=== PATIENT | female | born 1965 | race African-American/Black ===

== ENCOUNTER 2018-02-14 10:43 | Emergency (ER) | payer MEDICARE ==
[~2018-02-14] VITALS: Ht 170.2 cm; Wt 85.0 kg
[2018-02-14 10:47] VITALS: BP 124/76; PULSE 65; RESP 16; O2SAT 100
[2018-02-14] MEDS ORDERED: DIAZ5TAB PO (11:05)
[2018-02-14] MEDS ORDERED: TOPI1CAP PO (11:05)
[2018-02-14] MEDS ORDERED: MELO7.5T27 PO (11:05)
[2018-02-14] MEDS ORDERED: PARO20TA2 PO (11:05)
[2018-02-14] MEDS ORDERED: CLON0.2T PO (11:05)
[2018-02-14] MEDS ORDERED: ROSU1TAB8 PO (11:05)
[2018-02-14] MEDS ORDERED: ALBU6.7H INH (11:05)
[2018-02-14] MEDS ORDERED: SERT-132 PO (11:05)
[2018-02-14] MEDS ORDERED: ALEN1TAB48 PO (11:05)
[2018-02-14] MEDS ORDERED: PANT40TA3 PO (11:05)
[2018-02-14] MEDS ORDERED: ZOLP5TAB3 PO (11:05)
[2018-02-14] MEDS ORDERED: HYDR-3133 PO (11:05)
[2018-02-14] MEDS ORDERED: METO1TAB9 PO (11:05)
[2018-02-14] MEDS ORDERED: BACL10TA PO (11:05)
[2018-02-14] MEDS ORDERED: LYRI200C PO (11:05)
[2018-02-14] MEDS ORDERED: AMLO5TAB2 PO (11:05)
[2018-02-14] MEDS ORDERED: UMEC1INH INH (11:05)
[2018-02-14] MEDS ORDERED: DICL1KIT5 TOPICAL (11:05)
[2018-02-14] MEDS ORDERED: NALO1TAB2 PO (11:05)
[2018-02-14] MEDS ORDERED: LISI40TA PO (11:05)
[2018-02-14 11:10] LABS: AUTOMATED NEUTROPHIL # 5.5 TH/MM3 (1.8-7.7); BASOPHIL # 0.1 TH/MM3 (0-0.2); BASOPHIL % 0.6 % (0.0-2.0); EOSINOPHIL # 0.2 TH/MM3 (0-0.4); EOSINOPHIL % 2.1 % (0.0-4.0); HEMOGLOBIN 12.6 GM/DL (11.6-15.3); LYMPH % 31.9 % (9.0-44.0); MEAN CELL VOLUME 89.9 FL (80.0-100.0); MEAN CORPUSCULAR HEMOGLOBIN 29.8 PG (27.0-34.0); MEAN CORPUSCULAR HGB CONC 33.1 % (32.0-36.0); MEAN PLATELET VOLUME 7.6 FL (7.0-11.0); MONO % 7.6 % (0.0-8.0); MONOCYTE # 0.7 TH/MM3 (0-0.9); NEUT % 57.8 % (16.0-70.0); PLATELET COUNT 296 TH/MM3 (150-450); RED BLOOD COUNT 4.23 MIL/MM3 (4.00-5.30); RED CELL DISTRIBUTION WIDTH 16.2 % (11.6-17.2); WHITE BLOOD COUNT 9.5 TH/MM3 (4.0-11.0)
--- NOTE | 2018-02-14 11:25 | HHI.FF ---
Face to Face Verification Diagnosis: (1) Gait instability (2) Fibromyalgia (3) Chronic back pain (4) Vision impairment (5) Glaucoma Home Health Nursing Order: Medical education Signs/symptoms of disease process Medication education-adverse effect Nursing assessment with vital signs I have seen patient Echo Baez on 02/14/18. My clinical findings support the need for the requested home health care services because: Ltd mobility - disease progression Limited ability to care for self Need for psychosocial assistance Impaired cognition/judgement I certify that my clinical findings support that this patient is homebound because: Unsteady gait/balance Unsafe to leave home unassisted Need for psychosocial assistance Jon Allen MD February 14, 2018 11:25
[2018-02-14 12:00] VITALS: BP 120/73; PULSE 61; RESP 16; O2SAT 99
[2018-02-14 12:22] LABS: ALBUMIN 3.7 GM/DL (3.4-5.0); AST (GOT) 200 U/L (15-37); BICARBONATE 20.4 MEQ/L (21.0-32.0); BLOOD UREA NITROGEN 19 MG/DL (7-18); CALCIUM 8.6 MG/DL (8.5-10.1); CHLORIDE 113 MEQ/L (98-107); CREATININE 1.03 MG/DL (0.50-1.00); GLOMERULAR FILTRATION RATE 69 ML/MIN (>89); GLUCOSE,RANDOM 85 MG/DL (74-106); SODIUM (NA) 142 MEQ/L (136-145)
[2018-02-14 12:23] LABS: ALT (GPT) 90 U/L (10-53)
[2018-02-14 12:25] LABS: ALKALINE PHOSPHATASE 110 U/L (45-117); TOTAL BILIRUBIN ADULT 0.4 MG/DL (0.2-1.0); TOTAL PROTEIN 7.3 GM/DL (6.4-8.2)
--- NOTE | 2018-02-14 12:42 | PD ---
HPI Chief Complaint: General Weakness Time Seen by Provider: 10:50 Travel History International Travel<30 days: No Contact w/Intl Traveler<30days: No Traveled to known affect area: No History of Present Illness HPI Is a 52-year-old woman who presents to the emergency department via [facility] after a friend called because she appeared to be altered. She had slurred speech and unsteady gait. Per EMS a friend was concerned that the patient may be taking too much medication or should not be administering her medication. Patient states she has been feeling weak more recently, and a little bit more unsteady. Patient is on diazepam twice daily, baclofen, hydroxyzine e daily, Lyrica, and oxycodone. In her medication back there is also zolpidem which she says she is not taking she states she started the baclofen again in addition to the diazepam beginning of January. She states that she does her medications but is worried about them some. Denies any other infectious symptoms. No urinary symptoms. No other complaints. History Past Medical History Narrative Medical Glaucoma, decreased vision Back problems Fibromyalgia Tetanus Vaccination: > 5 Years Influenza Vaccination: No Social History Alcohol Use: No Tobacco Use: No Allergies-Medications (Allergen,Severity, Reaction): Coded Allergies: No Known Allergies (Verified Allergy, Intermediate, 02/14/18) Reported Meds & Prescriptions Reported Meds & Active Scripts Active Reported Alendronate (Alendronate Sodium) 70 Mg Tab 70 Mg PO Q7D Proventil Hfa 6.7 GM Inh (Albuterol Sulfate) 90 Mcg/Act Aer 2 Puff INH Q4-6H PRN Incruse Ellipta Inh (Umeclidinium [place] Inh) 0.0625 Mg/Act Inh 62.5 Mcg INH DAILY Diclo Gel Topical (Diclofenac Sodium) 1% Gel 1 Applic TOPICAL QID Trokendi Xr (Topiramate) 200 Mg Cap 200 Mg PO DAILY Metoprolol Succinate ER 24 HR (Metoprolol Succinate) 50 Mg Tab 50 Mg PO DAILY Paroxetine (Paroxetine HCl) 20 Mg Tab 20 Mg PO DAILY Rosuvastatin (Rosuvastatin Calcium) 20 Mg Tab 20 Mg PO DAILY Meloxicam 7.5 Mg Tab 7.5 Mg PO DAILY Amlodipine (Amlodipine Besylate) 5 Mg Tab 5 Mg PO DAILY Pantoprazole (Pantoprazole Sodium) 40 Mg Tab 40 Mg PO DAILY Zolpidem (Zolpidem Tartrate) 5 Mg Tab 5 Mg PO HS PRN Lisinopril 40 Mg Tab 40 Mg PO DAILY Diazepam 5 Mg Tab 5 Mg PO TID PRN Movantik (Naloxegol) 25 Mg Tab 25 Mg PO DAILY Hydroxyzine HCl 25 Mg Tab 25 Mg PO TID Baclofen 10 Mg Tab 10 Mg PO Q8HR Clonidine (Clonidine HCl) 0.2 Mg Tab 0.2 Mg PO HS Sertraline (Sertraline HCl) 50 Mg Tab 50 Mg PO DAILY Lyrica (Pregabalin) 200 Mg Cap 200 Mg PO BID Review of Systems Except as stated in HPI: all other systems reviewed are Neg Physical Exam Narrative GENERAL: 52-year-old woman, little bit sluggish, but answers all questions appropriately. SKIN: Focused skin assessment warm/dry. HEAD: Atraumatic. Normocephalic. EYES: Pupils equal and round. No scleral icterus. No injection or drainage. Slight ptosis on the right. ENT: No nasal bleeding or discharge. Mucous membranes pink and moist. NECK: Trachea midline. No JVD. CARDIOVASCULAR: Regular rate and rhythm. No murmur appreciated. RESPIRATORY: No accessory muscle use. Clear to auscultation. Breath sounds equal bilaterally. GASTROINTESTINAL: Abdomen soft, non-tender, nondistended. Hepatic and splenic margins not palpable. MUSCULOSKELETAL: No obvious deformities. No clubbing. No cyanosis. No edema. NEUROLOGICAL: Awake and alert. No obvious cranial nerve deficits. Motor grossly within normal limits. Normal speech. PSYCHIATRIC: Appropriate mood and affect; insight and judgment normal. Data Data Last Documented VS Vital Signs Date Time Temp Pulse Resp B/P (MAP) Pulse Ox O2 Delivery O2 Flow Rate FiO2 02/14/18 10:50 64 18 100 Room Air 02/14/18 10:47 124/76 (92) Orders Orders Complete Blood Count With Diff (02/14/18 10:50) Comprehensive Metabolic Panel (02/14/18 10:50) Iv Access Insert/Monitor (02/14/18 10:50) Electrocardiogram (02/14/18 10:49) Labs Laboratory Tests Test 02/14/18 10:59 02/14/18 11:41 White Blood Count 9.5 TH/MM3 Red Blood Count 4.23 MIL/MM3 Hemoglobin 12.6 GM/DL Hematocrit 38.0 % Mean Corpuscular Volume 89.9 FL Mean Corpuscular Hemoglobin 29.8 PG Mean Corpuscular Hemoglobin Concent 33.1 % Red Cell Distribution Width 16.2 % Platelet Count 296 TH/MM3 Mean Platelet Volume 7.6 FL Neutrophils (%) (Auto) 57.8 % Lymphocytes (%) (Auto) 31.9 % Monocytes (%) (Auto) 7.6 % Eosinophils (%) (Auto) 2.1 % Basophils (%) (Auto) 0.6 % Neutrophils # (Auto) 5.5 TH/MM3 Lymphocytes # (Auto) 3.0 TH/MM3 Monocytes # (Auto) 0.7 TH/MM3 Eosinophils # (Auto) 0.2 TH/MM3 Basophils # (Auto) 0.1 TH/MM3 CBC Comment DIFF FINAL Differential Comment Blood Urea Nitrogen 19 MG/DL Creatinine 1.03 MG/DL Random Glucose 85 MG/DL Albumin 3.7 GM/DL Calcium Level 8.6 MG/DL Aspartate Amino Transf (AST/SGOT) 200 U/L Alanine Aminotransferase (ALT/SGPT) 90 U/L Sodium Level 142 MEQ/L Potassium Level 3.6 MEQ/L Chloride Level 113 MEQ/L Carbon Dioxide Level 20.4 MEQ/L Anion Gap 9 MEQ/L Estimat Glomerular Filtration Rate 69 ML/MIN MDM Medical Decision Making Medical Screen Exam Complete: Yes Emergency Medical Condition: Yes Interpretation(s) My review of EKG: Normal sinus rhythm at a rate of 65, normal axis, normal intervals, some inferior T-wave flattening. Otherwise normal. LABS: CBC is unremarkable. CMP remarkable for elevated AST, mild elevated ALT. Mildly elevated BUN and creatinine. Differential Diagnosis Adverse medication effect, occult infection, intoxication, CVA, other Narrative Course Medical decision making 52-year-old woman, sluggishness, likely related to numerous sedating medications. I spoke to case management. We are going to be able to arrange for home health for her to come out and help her with her medications. She is new and does not have a outpatient primary physician. Home health will help her make those arrangements. She will need follow-up regarding her abnormal liver enzymes. Additional Instructions: Decrease use of sedating medications including specifically baclofen and Valium. Establish with a primary physician to manage her multiple medications. Home health will assist in medication teaching and management. Med/Other Pt SpecificInfo: No Change to Meds Disposition: 01 DISCHARGE HOME Condition: Stable Jon Allen MD February 14, 2018 12:42
[2018-02-14 14:30] VITALS: BP 139/86; PULSE 60; RESP 16; O2SAT 98
[2018-02-14 16:17] VITALS: BP 131/77; PULSE 57; RESP 16; O2SAT 97
--- NOTE | 2018-02-14 17:08 | PD ---
Data Data Last Documented VS Vital Signs Date Time Temp Pulse Resp B/P (MAP) Pulse Ox O2 Delivery O2 Flow Rate FiO2 02/14/18 16:17 57 16 131/77 (95) 97 Room Air Orders Orders Complete Blood Count With Diff (02/14/18 10:50) Comprehensive Metabolic Panel (02/14/18 10:50) Iv Access Insert/Monitor (02/14/18 10:50) Electrocardiogram (02/14/18 10:49) Ed Discharge Order (02/14/18 12:54) Labs Laboratory Tests Test 02/14/18 10:59 02/14/18 11:41 White Blood Count 9.5 TH/MM3 Red Blood Count 4.23 MIL/MM3 Hemoglobin 12.6 GM/DL Hematocrit 38.0 % Mean Corpuscular Volume 89.9 FL Mean Corpuscular Hemoglobin 29.8 PG Mean Corpuscular Hemoglobin Concent 33.1 % Red Cell Distribution Width 16.2 % Platelet Count 296 TH/MM3 Mean Platelet Volume 7.6 FL Neutrophils (%) (Auto) 57.8 % Lymphocytes (%) (Auto) 31.9 % Monocytes (%) (Auto) 7.6 % Eosinophils (%) (Auto) 2.1 % Basophils (%) (Auto) 0.6 % Neutrophils # (Auto) 5.5 TH/MM3 Lymphocytes # (Auto) 3.0 TH/MM3 Monocytes # (Auto) 0.7 TH/MM3 Eosinophils # (Auto) 0.2 TH/MM3 Basophils # (Auto) 0.1 TH/MM3 CBC Comment DIFF FINAL Differential Comment Blood Urea Nitrogen 19 MG/DL Creatinine 1.03 MG/DL Random Glucose 85 MG/DL Total Protein 7.3 GM/DL Albumin 3.7 GM/DL Calcium Level 8.6 MG/DL Alkaline Phosphatase 110 U/L Aspartate Amino Transf (AST/SGOT) 200 U/L Alanine Aminotransferase (ALT/SGPT) 90 U/L Total Bilirubin 0.4 MG/DL Sodium Level 142 MEQ/L Potassium Level 3.6 MEQ/L Chloride Level 113 MEQ/L Carbon Dioxide Level 20.4 MEQ/L Anion Gap 9 MEQ/L Estimat Glomerular Filtration Rate 69 ML/MIN MDM Supervised Visit with LATHA: No Diagnosis Primary Impression: Gait instability Additional Impression: Fibromyalgia Patient Instructions: General Instructions Departure Forms: Tests/Procedures Additional Instruction: Decrease use of sedating medications including specifically baclofen and Valium. Establish with a primary physician to manage her multiple medications. Home health will assist in medication teaching and management. Disposition: 01 DISCHARGE HOME Condition: Stable Jon Allen MD February 14, 2018 17:08
--- NOTE | 2018-02-15 14:29 | EKG ---
Date Performed: 02/14/2018 Time Performed: 10:49:41 PTAGE: 52 years EKG: Sinus rhythm NONSPECIFIC T-WAVE ABNORMALITY BORDERLINE ECG INTERPRETATION BASED ON A DEFAULT AGE OF 42 YEARS NO PREVIOUS TRACING DOCTOR: Jon Lopez Interpretating Date/Time 02/15/2018 14:28:48
== END 2018-02-14 17:15 | disposition home or self-care (01) ==
LOC: NEPC 10:43
DX: R26.9 Unspecified abnormalities of gait and mobility (principal); M79.7 Fibromyalgia
CPT/HCPCS: 80053; 85025; 93005

== ENCOUNTER 2018-03-15 21:53 | Observation (INO) | END 2018-03-18 14:00 | LOC: NEPGCP 21:53 | PROVIDERS: ADMIT Hospitalist; ATTEND Hospitalist | DX: G89.29 Other chronic pain; Z90.710 Acquired absence of both cervix and uterus; M79.7 Fibromyalgia; E87.6 Hypokalemia; E78.5 Hyperlipidemia, unspecified; I10 Essential (primary) hypertension; H40.9 Unspecified glaucoma; M54.9 Dorsalgia, unspecified; R26.81 Unsteadiness on feet; R41.82 Altered mental status, unspecified; H54.7 Unspecified visual loss; F29 Unspecified psychosis not due to a substance or known physiological condition ==

== ENCOUNTER 2018-03-18 13:50 | Inpatient (IN) ==
[2018-03-18] MEDS ORDERED: Haloperidol Inj 5 MG/ML Ampul ONE (22:53)
[2018-03-19] MEDS ORDERED: Aluminum/Magnesium/Simethacone Susp 30 ML UDC PO PRN ×2 (08:57→11:22)
[2018-03-19] MEDS ORDERED: DICLOFENAC SODIUM TOPICAL SCH ×2 (09:00→13:00)
[2018-03-19] MEDS ORDERED: Lisinopril 20 MG Tablet PO SCH ×2 (09:00)
[2018-03-19] MEDS ORDERED: Baclofen 10 MG Tablet PO SCH (09:00)
[2018-03-19] MEDS ORDERED: NALOXEGOL 25 MG PO SCH (09:00)
[2018-03-19] MEDS ORDERED: amLODIPine 5 MG Tablet PO SCH (09:00)
--- NOTE | 2018-03-19 11:15 | P.HPPSY ---
Provisional Diagnosis Admission Date: March 18, 2018 13:50 Grubbs I.: Substance-induced altered mental status Competence Certification of Person's Competence To Provide Express and Informed Consent I have personally examined Echo Baez, a person being served at [facility] on, March 19, 2018 1054. Express and informed consent means consent voluntarily given in writing, by a competent person, after sufficient explanation and disclosure of the subject matter involved to enable the person to make a knowing and willful decision without any element of force, fraud, deceit, duress, or other form of constraint or coercion. This person is 18 years of age or older, is not now known to be incompetent to consent to treatment with a guardian advocate, and does not have a health care surrogate or proxy currently making medical treatment decisions. I have found this person to be one of the following: [] Competent to provide express and informed consent, as defined above, for voluntary admission to this facility and is competent to provide express and informed consent for treatment. He/she has the consistent capacity to make well reasoned, willful, and knowing decisions concerning his or her medical or mental health treatment. The person fully and consistently understands the purpose of the admission for examination/placement and is fully capable of personally exercising all rights assured [place] [] Incompetent to provide express and informed consent to voluntary admission, and this is incompetent to provide express and informed consent to treatment. The person must be transferred to involuntary status and a petition for a guardian advocate filed with the Circuit Court. []xxx Refusing to provide express and informed consent to voluntary admission but is competent to provide express and informed consent for treatment. The person must be discharged or transferred to involuntary status. Form shall be completed within 24 hours of a person's arrival at the receiving facility and filed in the clinical record of each person: 1. Admitted on a voluntary basis 2. Permitted to provide express and informed consent to his/her own treatment 3. Allowed to transfer from involuntary to voluntary status 4. Prior to permitting a person to consent to his or her own treatment after having been previously found incompetent to consent to treatment. History of Present Illness Capacity: Lacks capacity (Patient lacks capacity to sign for admission patient has capacity signed for medication) Chief Complaint: Altered mental status confusion History of Present Illness: Patient is a 52-year-old -[place] female initially comes to the hospital about 03/15/2018 of the [place] act recurrent on 03/16/2018 signed by Jitendra Paniagua dated 02/2918 stating unspecified psychosis patient acutely psychotic paranoid bizarre and presenting delusions patient was admitted to the medical side for further assessment urine toxicology positive for benzodiazepines. The impression was that patient had of medication-induced altered mental status she is unwilling veritable cortical eleni of medications recently done here from [place] she does have a son who lives locally. It appears patient was medically cleared and then transferred to the 2700 unit. Patient sitting quietly in her chair in the dayroom. Patient seen with nurse Maria De Jesus. Patient is grossly oriented to [place] 2017 and February, she is confused as to place and situation. We are not certain as to the reasons for her moving here from [place]. We are uncertain as to any past psychiatric history. Patient is unable to give us that information. In any event at the present time patient does meet criteria for further inpatient psychiatric hospitalization of the [place] act I will do first opinion request second opinion. Though I do feel she may have capacity to sign for medication. She has been no behavior problem. We will have the hospitalist continue their consultation she is on as mentioned above multiple medication. We will attempt to reach patient's family locally to get further information about this lady - Inpatient Certification I certify that the inpatient services were ordered in accordance with Medicare regulations governing the order. This includes certification that hospital inpatient services are reasonable and necessary and in the case of services not specified as inpatient-only under 42 CFR 419.22(n), that they are appropriately provided as inpatient services in accordance to with the 2-midnight benchmark under 43 CFR 412.3(e) I certify that inpatient psychiatric hospital services are medically necessary. Evaluation and treatment and/or diagnostic testing are expected to improve the patient's condition. The patient needs on a daily basis, active treatment furnished directly by or requiring the supervision of inpatient psychiatric facility personnel. Estimated Total Length of Stay (Days): 7 Plans for Post Hospital Care: Home (With family) Review of Systems unobtainable due to mental status Quality Measures - Psychiatric History Psychological trauma history: Unknown at this time Violence risk to others in the last 6 months: Low Violence risk to self in the last 6 months: Low - Substance Abuse History Drug or alcohol use in the past 12 months: Unknown at this time though possible overdose on benzodiazepines - Patient Strengths Patient's strengths (minimum of 2): Patient verbal calm and cooperative Medications and Allergies Active Medications: Active Medications Acetaminophen (Tylenol) 650 mg PO Q4H PRN PRN Reason: Pain 1-5 or Temp >101F Al Hydrox/Mg Hydrox/Simethicone (Mag-Al Plus Susp Liq) 30 ml PO Q6H PRN PRN Reason: DYSPEPSIA Al Hydroxide/Mg Hydroxide (Milk Of Magnesia Liq) 30 ml PO DAILY PRN PRN Reason: CONSTIPATION Albuterol (Ventolin Hfa Inh) 2 puff INH Q4-6H PRN PRN Reason: Shortness Of Breath Alendronate Sodium (Fosamax) 70 mg PO QWEEK [facility] Amlodipine Besylate (Norvasc) 5 mg PO DAILY [facility] Amlodipine Besylate (Norvasc) 5 mg PO DAILY [facility] Atorvastatin Calcium (Lipitor) 40 mg PO DAILY [facility] Baclofen (Lioresal) 10 mg PO Q8HR [place] Baclofen (Lioresal) 10 mg PO Q8HR [place] Clonidine HCl (Catapres) 0.2 mg PO HS [facility] Clonidine HCl (Catapres) 0.2 mg PO HS [facility] Hydroxyzine HCl (Atarax) 25 mg PO TID [place] Lisinopril (Prinivil) 40 mg PO DAILY [facility] Meloxicam (Mobic) 7.5 mg PO DAILY [facility] Metoprolol Succinate (Toprol Xl) 50 mg PO DAILY [facility] Metoprolol Succinate (Toprol Xl) 50 mg PO DAILY [facility] Non-Formulary Medication (Diclofenac Sodium [Diclofenac Sodium]) 1 applicatio TOPICAL QID [place] Non-Formulary Medication (Lisinopril [Lisinopril]) 40 mg PO DAILY [facility] Non-Formulary Medication (Naloxegol [Naloxegol]) 25 mg PO QAM [place] Non-Formulary Medication (Rosuvastatin [Rosuvastatin]) 20 mg PO DAILY [place] Non-Formulary Medication (Topiramate [Topiramate]) 200 mg PO DAILY [place] Non-Formulary Medication (Umeclidinium [Umeclidinium]) 1 inh INHALATION DAILY [place] Non-Formulary Medication (Pregabalin [Pregabalin]) 200 mg PO BID [place] Pantoprazole Sodium (Protonix) 40 mg PO DAILY [facility] Pantoprazole Sodium (Protonix) 40 mg PO DAILY [facility] Pom:(Naloxegol ( (Movantik) 25 Mg)) 0 each PO DAILY [facility] Pom: (Diclofenac Sodium Gel Topical ( Diclo Gel Topical) 1 Applic) 0 each TOPICAL QID [facility] Allergies Allergy/AdvReac Type Severity Reaction Status Date / Time No Known Allergies Allergy Intermediate Uncoded 02/14/18 10:54 Home Medications Medication Instructions Recorded Confirmed Type albuterol sulfate 2 puff INHALATION Q4-6H PRN 03/18/18 03/18/18 History alendronate 70 mg PO QWEEK 03/18/18 03/18/18 History amlodipine 5 mg PO DAILY 03/18/18 03/18/18 History baclofen 10 mg PO TID 03/18/18 03/18/18 History clonidine HCl 0.2 mg PO HS 03/18/18 03/18/18 History diclofenac sodium 1 applicatio TOPICAL QID 03/18/18 03/18/18 History hydroxyzine HCl 25 mg PO TID 03/18/18 03/18/18 History lisinopril 40 mg PO DAILY 03/18/18 03/18/18 History meloxicam 7.5 mg PO DAILY 03/18/18 03/18/18 History metoprolol succinate 50 mg PO DAILY 03/18/18 03/18/18 History naloxegol 25 mg PO QAM 03/18/18 03/18/18 History pantoprazole 40 mg PO DAILY 03/18/18 03/18/18 History paroxetine HCl 20 mg PO DAILY 03/18/18 03/18/18 History pregabalin 200 mg PO BID 03/18/18 03/18/18 History rosuvastatin 20 mg PO DAILY 03/18/18 03/18/18 History sertraline 50 mg PO DAILY 03/18/18 03/18/18 History topiramate 200 mg PO DAILY 03/18/18 03/18/18 History umeclidinium 1 inh INHALATION DAILY 03/18/18 03/18/18 History Exam Vital signs: Vital Signs 03/19/18 06:07 Temperature 98.5 F Blood Pressure 163/89 H Pulse Oximetry 96 Intake & Output 03/18/18 03/19/18 03/19/18 18:59 06:59 18:59 Weight 110 kg - Routine Psychiatric Exam Present: normal affect (Slight decreased range and intensity) - Detailed Psychiatric Exam Mood and affect: Present: withdrawn Thought process: Present: loose association Mental Status Examination Appearance: Appropriate Consciousness: Alert Orientation: Person, Date/Time Motor Activity: Normal gait Speech: Hesitant, Slow, Other (Whispered) Language: Adequate Fund of Knowledge: Inadequate Attention and Concentration: Other (Fair) Memory: Unremarkable (Fair) Mood: Other (Restricted) Affect: Other (Decreased range and intensity) Thought Process & Associations: Disorganized Thought Content: Other (Disorganized) Hallucination Type: None Delusion Type: Other (Vigilant) Suicidal Ideation: No Suicidal Plan: No Suicidal Intention: No Homicidal Ideation: No Homicidal Plan: No Homicidal Intention: No Insight: Poor Judgment: Poor Assessment and Plan - Plan Plan: Estimated LOS: [] days Justification for Continued Inpatient Stay: At this time patient would decompensate a place to a lower level of care Discharge Planning: Return home with family Request Healthcare Surrogate/Guardian Advocate?: No - Attending Attestation I have personally dictated and examined patient
[2018-03-19] MEDS ORDERED: Bisacodyl 10 MG Supp RECTAL PRN (11:22)
[2018-03-19] MEDS: amLODIPine 5 MG Tablet PO SCH (12:10)
[2018-03-19] MEDS: Topiramate 200 MG Tablet PO SCH (12:10)
[2018-03-19] MEDS: Meloxicam 7.5 MG Tablet PO SCH ×2 (13:06→14:14)
[2018-03-19] MEDS: Lisinopril 20 MG Tablet PO SCH (13:12)
[2018-03-19] MEDS: Baclofen 10 MG Tablet PO SCH ×2 (13:12→22:30)
--- NOTE | 2018-03-19 14:00 | P.CON ---
History of Present Illness Service: [facility] Consult date: 03/18/18 Requesting Physician: Surendra Shah Reason for Consult: Restart medications Primary Care Provider: UNKNOWN History of Present Illness: 52-year-old female with a past medical history significant for glaucoma, chronic back pain, hypertension, hyperlipidemia, GERD and fibromyalgia presents to the ED on 03/15 with complaints of weakness and altered mental status. Patient was admitted to observation unit for further evaluation. Head CT was negative, urine screen positive for benzodiazepines, treated for uncontrolled hypertension as well as hypokalemia. Psychiatry saw and evaluated patient during her stay in observation unit due to psychosis and paranoia. She was cleared for discharge and admit inpatient psychiatry. [facility] have been consulted to assist with medication reconciliation since her discharge from observation unit. Patient is seen and examined in the day room, appears to be in no acute distress. She is awake and alert, oriented 3. She denies any fevers, chills, nausea, vomiting, diarrhea, cough or shortness of breath. Spoke with nurse who does not report any acute concerns or complaints. Medications and Allergies Active Medications: Active Medications Acetaminophen (Tylenol) 650 mg PO Q4H PRN PRN Reason: Pain 1-5 or Temp >101F Al Hydrox/Mg Hydrox/Simethicone (Mag-Al Plus Susp Liq) 30 ml PO Q6H PRN PRN Reason: DYSPEPSIA Al Hydroxide/Mg Hydroxide (Milk Of Magnesia Liq) 30 ml PO Q12H PRN PRN Reason: Mild Constipation Albuterol (Ventolin Hfa Inh) 2 puff INH Q4H PRN PRN Reason: Shortness Of Breath Amlodipine Besylate (Norvasc) 5 mg PO DAILY [facility] Last Admin: 03/19/18 12:10 Dose: 5 mg Atorvastatin Calcium (Lipitor) 40 mg PO DAILY [facility] Last Admin: 03/19/18 13:12 Dose: 40 mg Baclofen (Lioresal) 10 mg PO Q8HR [facility] Last Admin: 03/19/18 13:12 Dose: 10 mg Bisacodyl (Dulcolax Supp) 10 mg RECTAL DAILY PRN PRN Reason: SEVERE CONSITIPATION Clonidine HCl (Catapres) 0.2 mg PO HS [place] Diphenhydramine HCl (Benadryl) 50 mg PO HS PRN PRN Reason: INSOMNIA Hydroxyzine HCl (Atarax) 25 mg PO TID [facility] Last Admin: 03/19/18 13:10 Dose: 25 mg Lactulose (Lactulose Liq) 30 ml PO DAILY PRN PRN Reason: SEVERE CONSITIPATION Lisinopril (Prinivil) 40 mg PO DAILY [facility] Last Admin: 03/19/18 13:12 Dose: 40 mg Meloxicam (Mobic) 7.5 mg PO DAILY [facility] Last Admin: 03/19/18 13:06 Dose: Not Given Metoprolol Succinate (Toprol Xl) 50 mg PO DAILY [facility] Last Admin: 03/19/18 12:10 Dose: 50 mg Pantoprazole Sodium (Protonix) 40 mg PO DAILY [facility] Last Admin: 03/19/18 12:10 Dose: 40 mg Pom: (Umeclidinium [ (Umeclidinium] 1 Inh)) 0 each INH DAILY [facility] Pom:(Naloxegol ( (Movantik) 25 Mg)) 0 each PO DAILY [facility] Pom: (Diclofenac Sodium Gel Topical ( Diclo Gel Topical) 1 Applic) 0 each TOPICAL QID [facility] Pregabalin (Lyrica) 200 mg PO BID [facility] Senna/Docusate Sodium (Cherise-Colace) 1 tab PO BID [facility] Sennosides (Senokot) 17.2 mg PO Q12H PRN PRN Reason: Moderate Constipation Topiramate (Topamax) 200 mg PO DAILY [facility] Last Admin: 03/19/18 12:10 Dose: 200 mg Allergies Allergy/AdvReac Type Severity Reaction Status Date / Time No Known Allergies Allergy Intermediate Uncoded 02/14/18 10:54 Home Medications Medication Instructions Recorded Confirmed Type albuterol sulfate 2 puff INHALATION Q4-6H PRN 03/18/18 03/18/18 History alendronate 70 mg PO QWEEK 03/18/18 03/18/18 History amlodipine 5 mg PO DAILY 03/18/18 03/18/18 History baclofen 10 mg PO TID 03/18/18 03/18/18 History clonidine HCl 0.2 mg PO HS 03/18/18 03/18/18 History diclofenac sodium 1 applicatio TOPICAL QID 03/18/18 03/18/18 History hydroxyzine HCl 25 mg PO TID 03/18/18 03/18/18 History lisinopril 40 mg PO DAILY 03/18/18 03/18/18 History meloxicam 7.5 mg PO DAILY 03/18/18 03/18/18 History metoprolol succinate 50 mg PO DAILY 03/18/18 03/18/18 History naloxegol 25 mg PO QAM 03/18/18 03/18/18 History pantoprazole 40 mg PO DAILY 03/18/18 03/18/18 History paroxetine HCl 20 mg PO DAILY 03/18/18 03/18/18 History pregabalin 200 mg PO BID 03/18/18 03/18/18 History rosuvastatin 20 mg PO DAILY 03/18/18 03/18/18 History sertraline 50 mg PO DAILY 03/18/18 03/18/18 History topiramate 200 mg PO DAILY 03/18/18 03/18/18 History umeclidinium 1 inh INHALATION DAILY 03/18/18 03/18/18 History Physical Exam Vital signs: Vital Signs 03/19/18 06:07 Temperature 36.9 C Blood Pressure 163/89 H Pulse Oximetry 96 Intake & Output 03/18/18 03/19/18 03/19/18 18:59 06:59 18:59 Weight 110 kg Narrative: GENERAL: Obese, -Iraqi female, sitting in the day room appears to be in no acute distress.. SKIN: No rashes, ecchymoses or lesions. Cool and dry. HEAD: Atraumatic. Normocephalic. EYES: Pupils equal round and reactive. Extraocular motions intact. No scleral icterus. No injection or drainage. ENT: Nose without bleeding, purulent drainage or septal hematoma. Airway patent. NECK: Trachea midline. No JVD. CARDIOVASCULAR: Regular rate and rhythm without murmurs, gallops, or rubs. RESPIRATORY: Clear to auscultation. Breath sounds equal bilaterally. No wheezes , rales, or rhonchi. GASTROINTESTINAL: Abdomen soft, nondistended. No palpable masses. MUSCULOSKELETAL: Extremities without clubbing, cyanosis, or edema. No joint tenderness, effusion, or edema noted. NEUROLOGICAL: Awake, alert, oriented 3. Moving bilateral upper and lower extremities without difficulties. Ambulating without assistive devices. Speech is clear, no facial droop noted. Assessment and Plan - Plan 52-year-old -Iraqi female with past medical history significant for glaucoma, chronic back pain, hypertension, hyperlipidemia, GERD and fibromyalgia who presented to the emergency department on 03/15 due to altered mental status and generalized weakness. She was admitted to observation unit and subsequently discharged on to inpatient psychiatry. [facility] has been consulted to restart patient's medications. Psychosis -Patient admitted to inpatient psychiatry, medication adjustments per primary. Acute encephalopathy secondary to polypharmacy, resolved -Careful monitoring of patient's medication, avoid sedatives if possible Chronic pain -Continue Lyrica 200 mg twice daily, Mobic 7.5 mg daily, baclofen 10 mg every 8 hours and diclofenac gel -Avoid narcotics if at all possible secondary to recent episode of encephalopathy Hypertension Hyperlipidemia -Continue Norvasc 5 mg daily, lisinopril 40 mg daily, Toprol XL 50 mg daily, and clonidine 0.2 mg at bedtime -Continue monitoring vital signs and adjusting medications according Hypokalemia -Last potassium level was checked on 03/17, at that time was 3.1 -BMP today with K 3.2, replace with 40mEq po, recheck K and mag levels tomorrow. GERD-Continue home Protonix DVT prophylaxis-ambulation Discussed with patient and RN.
[2018-03-19 16:22] LABS: Potassium 3.2 meq/L (3.5-5.1)
[2018-03-19 16:23] LABS: Calcium 9.3 mg/dL (8.5-10.1); Carbon Dioxide 21.3 meq/L (21.0-32.0)
[2018-03-19] MEDS: Senna/Docusate Sodium 8.6/50 MG Tablet PO SCH (20:14)
[2018-03-20] MEDS: Meloxicam 7.5 MG Tablet PO SCH (08:51)
[2018-03-20] MEDS: Lisinopril 20 MG Tablet PO SCH (08:51)
[2018-03-20] MEDS: Topiramate 200 MG Tablet PO SCH (08:52)
[2018-03-20] MEDS: amLODIPine 5 MG Tablet PO SCH (08:54)
[2018-03-20] MEDS: Senna/Docusate Sodium 8.6/50 MG Tablet PO SCH (08:54)
[2018-03-20] MEDS ORDERED: NALOXEGOL 25 MG PO SCH (09:00)
[2018-03-20] MEDS ORDERED: UMECLIDINIUM INH SCH (09:00)
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
--- NOTE | 2018-03-20 11:54 | P.PN ---
Subjective Interval history: Follow-up visit for psychosis, acute encephalopathy, chronic pain, hypertension and hypokalemia. Spoke with nurse reports patient has transient episodes of confusion, periods where she did not remember or recognize family members. Nurse also reports patient had episode where she apparently choked on an apple. Patient will be transferring to medical psychiatry unit today. Patient is seen and examined in the hallway and ambulates into her room with assistance, appears groggy. She is alert and oriented to time, place, year, current president, and self. She denies any shortness of breath, cough, fevers, chills , nausea, vomiting, or abdominal pain. Reports liquid stools, states she had a laxative today. Patient request to nurse that she be discharged. Physical Exam Vital signs: Vital Signs 03/19/18 15:38 03/19/18 18:00 03/20/18 06:26 Temperature 37.0 C 36.8 C 36.2 C L Pulse Rate 75 76 55 L Respiratory Rate 18 19 Blood Pressure 128/75 128/78 143/90 H Pulse Oximetry 99 98 100 Intake & Output 03/19/18 03/20/18 03/20/18 18:59 06:59 18:59 Weight 89.8 kg Narrative: GENERAL: Obese, -Guyanese female, appears groggy. SKIN: Cool and dry. HEAD: Atraumatic. Normocephalic. EYES: Pupils equal round and reactive. Extraocular motions intact. No scleral icterus. No injection or drainage. ENT: Nose without bleeding. Airway patent. NECK: Trachea midline. CARDIOVASCULAR: Regular rate and rhythm without murmurs, gallops, or rubs. RESPIRATORY: Clear to auscultation. Breath sounds equal bilaterally. No wheezes , rales, or rhonchi. GASTROINTESTINAL: Abdomen soft, nondistended. No palpable masses. MUSCULOSKELETAL: Extremities without clubbing, cyanosis, or edema. NEUROLOGICAL: Awake, alert, oriented [address], time, and self, seems groggy/ sleepy. Cranial nerves II-XII intact, strength in bilateral upper and lower extremities 5/5, sensation also intact. Ambulating without assistive devices. Speech is clear, no facial droop noted. Results - Labs CBC & Chem 7: 03/19/18 14:46 Laboratory Results - last 24 hr 03/19/18 14:46 Sodium 143 Potassium 3.2 L Chloride 110 H Carbon Dioxide 21.3 Anion Gap 12 BUN 14 Creatinine 0.87 Estimated GFR 83 L Random Glucose 92 Calcium 9.3 Assessment and Plan - Plan 52-year-old -Guyanese female with past medical history significant for glaucoma, chronic back pain, hypertension, hyperlipidemia, GERD and fibromyalgia who presented to the emergency department on 03/15 due to altered mental status and generalized weakness. She was admitted to observation unit and subsequently discharged on to inpatient psychiatry. [facility] has been consulted to restart patient's medications. Psychosis -Patient admitted to inpatient psychiatry, medication adjustments per primary. Acute encephalopathy secondary to polypharmacy, resolved -Careful monitoring of patient's medication, avoid sedatives if possible - ? transient change in mental status, appears sleepy on my examination. Reduce dose of Lyrica, hold baclofen, DC hydroxyzine. - Transfer to medical psych floor for closer monitoring -Speech therapy ordered for swallow evaluation - Pending lab orders. Chronic pain -Continue Lyrica dose decreased to 100 mg twice daily, Mobic 7.5 mg daily, baclofen placed on hold -Avoid narcotics if at all possible secondary to recent episode of encephalopathy Hypertension Hyperlipidemia -Continue Norvasc 5 mg daily, lisinopril 40 mg daily, Clonidine 0.2mg HS, HR 55 this a.m. cut back Toprol XL dose to 25 mg daily -Continue monitoring vital signs and adjusting medications according Hypokalemia -Last potassium level was checked on 03/17, at that time was 3.1 -BMP today with K 3.2, replace with 40mEq po, pending labs today. Diarrhea -Most likely secondary to stool softeners, hold stool softeners and monitor. GERD-Continue home Protonix DVT prophylaxis-ambulation Discussed with patient and RN.
[2018-03-20] MEDS: Acetaminophen 325 MG Tablet PO PRN (18:18)
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
[2018-03-21] MEDS: Lisinopril 20 MG Tablet PO SCH (10:11)
[2018-03-21] MEDS: amLODIPine 5 MG Tablet PO SCH (10:12)
[2018-03-21] MEDS: Meloxicam 7.5 MG Tablet PO SCH (10:12)
[2018-03-21] MEDS: Topiramate 200 MG Tablet PO SCH (10:13)
[2018-03-21 11:29] LABS: Anion Gap 11 meq/L (5-15); Blood Urea Nitrogen 18 mg/dL (7-18); Calcium 9.1 mg/dL (8.5-10.1); Carbon Dioxide 20.8 meq/L (21.0-32.0); Chloride 110 meq/L (98-107); Glomerular Filtration Rate 69 mL/min (>89); Glucose,Random 83 mg/dL (74-106); Potassium 3.2 meq/L (3.5-5.1); Sodium 142 meq/L (136-145)
[2018-03-21 11:57] LABS: Chol/HDL Ratio 1.69 Ratio; Cholesterol 97 mg/dL (120-200); Free T4 (Free Thyroxine) 1.32 ng/dL (0.76-1.46); HDL Cholesterol 57.1 mg/dL (40.0-60.0); LDL Cholesterol,Calculated 27 mg/dL (0-99); Triglycerides 65 mg/dL (42-150)
--- NOTE | 2018-03-21 13:58 | P.PN ---
Subjective Interval history: Follow-up on patient with acute psychosis, chronic pain, MS, hypertension. Patient seen and examined. Patient complains of total body pain which she states is chronic. She also reports left hip pain and states she was scheduled to have an MRI of her left hip done by her neurologist Dr. Ludwig as an outpatient. She denies any fever or chills. She denies any new chest pain or shortness of breath. Denies any nausea, vomiting or abdominal pain. Patient is alert and oriented 3. She is afebrile. Vital signs are stable. Physical Exam Vital signs: Vital Signs 03/20/18 19:34 03/21/18 06:00 Temperature 97.9 F 97.9 F Pulse Rate 61 62 Respiratory Rate 18 16 Blood Pressure 159/72 H 132/57 L Pulse Oximetry 99 95 Intake & Output 03/20/18 03/21/18 03/21/18 18:59 06:59 18:59 Intake Total 960 / 960 340 / 340 240 / 240 Balance 960 / 960 340 / 340 240 / 240 Intake: Oral 960 / 960 240 / 240 240 / 240 Oral Supplement 100 / 100 Other: # Voids 1 # Bowel Movements 1 Narrative: GENERAL: This is a well-developed well-nourished -[place] female patient , in no acute distress. Awake and alert. SKIN: Warm and dry. HEAD: Atraumatic. Normocephalic. EYES: Pupils equal and round. No scleral icterus. No injection or drainage. ENT: No nasal bleeding or discharge. Mucous membranes pink and moist. Airway patent. NECK: Trachea midline. CARDIOVASCULAR: Regular rate and rhythm. RESPIRATORY: No accessory muscle use. Clear to auscultation. Breath sounds equal bilaterally. GASTROINTESTINAL: Abdomen soft, non-tender, nondistended. MUSCULOSKELETAL: Extremities without clubbing, cyanosis, or edema. No obvious deformities. Positive for tenderness elicited with internal and external rotation the left hip. Motor sensory function intact in the left lower extremity. NEUROLOGICAL: Awake and alert. No obvious cranial nerve deficits. Motor grossly within normal limits. Able to move all extremities spontaneously. Normal speech. PSYCHIATRIC: Flat affect, somewhat depressed mood. Results - Labs CBC & Chem 7: 03/21/18 10:26 Laboratory Results - last 24 hr 07/03/18 07/03/18 07/03/18 10:10 10:26 10:26 Sodium 142 Potassium 3.2 L Chloride 110 H Carbon Dioxide 20.8 L Anion Gap 11 BUN 18 Creatinine 1.02 H Estimated GFR 69 L Random Glucose 83 Calcium 9.1 Magnesium 2.0 Ammonia 41 H Triglycerides 65 Cholesterol 97 L LDL Cholesterol, Calc 27 HDL Cholesterol 57.1 Cholesterol/HDL Ratio 1.69 Vitamin B12 Greater than 2000 H Folate Greater than 20.0 H Free T4 1.32 HIV 1&2 Ab/P24 Ag 4thGn Nonreactive Assessment and Plan - Plan 52-year-old -[place]ian female with past medical history significant for glaucoma, chronic back pain, hypertension, hyperlipidemia, GERD and fibromyalgia who presented to the emergency department on 03/15 due to altered mental status and generalized weakness. She was admitted to observation unit and subsequently discharged on to inpatient psychiatry. [facility] has been consulted to restart patient's medications. Acute psychosis, improved -Management per psychiatry -HIV negative, RPR pending Acute encephalopathy secondary to polypharmacy, resolved Head CT negative for acute intracranial process -Continue close monitoring of patient's medications she is on multiple sedating meds, avoid if possible. -Patient appears improved with reduction in dose of Lyrica and holding baclofen and hydroxyzine. Plan continue on current dose of Lyrica. Chronic pain Left hip pain -Continue Lyrica dose decreased to 100 mg twice daily, Mobic 7.5 mg daily, discontinue baclofen secondary to oversedation -Avoid narcotics if at all possible secondary to recent episode of encephalopathy -Patient participated with physical therapy today, able to ambulate independently, 60 feet. Continue with PT. -Patient scheduled to follow-up as outpatient with Dr. Ludwig as previously scheduled for MRI of the left hip and spine. -Patient may benefit from SNF placement prior to discharge home. Case management consulted to assist with DC planning. Hypertension Hyperlipidemia -Continue Norvasc 5 mg daily, lisinopril 40 mg daily, Clonidine 0.2mg HS, HR 55 this a.m. cut back Toprol XL dose to 25 mg daily -Continue monitoring vital signs and adjusting medications according Hypokalemia K 3.2 Mag level 2.0 -P.o. repletion ordered -Continue to monitor potassium level as indicated KHUSHI, mild -Avoid nephrotoxic agent -Encourage oral fluid intake -Monitor kidney function as indicated Transaminitis LFTs trending down -Avoid hepatotoxic agent -Continue to monitor LFTs - repeat CMP in am Diarrhea, resolved -Most likely secondary to stool softeners, hold stool softeners and monitor. GERD-Continue home Protonix DVT prophylaxis-ambulation Overall, patient appears stable from hospitalist standpoint. Patient could be discharged directly to home with home health care and/or SNF placement prior to discharge home. Discussed Condition With: patient, nursing staff, Dr. Shanks and Dr. Thomas.
[2018-03-21] MEDS: Acetaminophen 325 MG Tablet PO PRN (17:20)
[2018-03-21 17:59] LABS: Hemoglobin A1c 5.3 % (4.3-6.0)
[2018-03-22] MEDS: Acetaminophen 325 MG Tablet PO PRN (02:24)
[2018-03-22] MEDS: Lisinopril 20 MG Tablet PO SCH (10:16)
[2018-03-22] MEDS: Meloxicam 7.5 MG Tablet PO SCH (10:16)
[2018-03-22] MEDS: amLODIPine 5 MG Tablet PO SCH (10:16)
[2018-03-22] MEDS: Topiramate 200 MG Tablet PO SCH (10:17)
--- NOTE | 2018-03-22 13:53 | P.DCO ---
- Physical Therapy Order: Evaluate and treat, Improve ambulation, Strength and gait training - Certification I have seen patient Echo Baez on 03/22/18. My clinical findings support the need for the requested home health care services because: Deconditioned with increased weakness, Limited ability to care for self, High risk of falls I certify that my clinical findings support that this patient is homebound because: Unsteady gait/balance, Unsafe to leave home unassisted, Unable to use public transportation
--- NOTE | 2018-03-22 14:09 | P.PN ---
Subjective Interval history: Follow-up on patient with acute psychosis, chronic pain, MS, hypertension. Patient seen and examined. Patient continues to have same complaints of total body pain. She tells me today that she is legally blind. Planes of chronic intermittent chest pain with associated shortness of breath that she attributes to her anxiety/panic attacks. She denies any chest pain or shortness of breath this time. She denies any nausea, vomiting or abdominal pain. Patient witnessed ambulating slow but steady in her room pulling her walker behind her. Physical Exam Vital signs: Vital Signs 03/21/18 18:39 03/22/18 06:00 Temperature 98 F 97.5 F L Pulse Rate 69 70 Respiratory Rate 17 17 Blood Pressure 120/81 134/58 L Pulse Oximetry 99 Intake & Output 03/21/18 03/22/18 03/22/18 18:59 06:59 18:59 Intake Total 1560 / 1560 580 / 580 720 / 720 Output Total 2 / 2 Balance 1560 / 1560 578 / 578 720 / 720 Intake: Oral 1560 / 1560 480 / 480 720 / 720 Oral Supplement 100 / 100 Output: Urine 2 / 2 Narrative: GENERAL: This is a well-developed well-nourished -[place] female patient , in no acute distress. Awake and alert. SKIN: Warm and dry. HEAD: Atraumatic. Normocephalic. EYES: Pupils equal and round. No scleral icterus. No injection or drainage. ENT: No nasal bleeding or discharge. Mucous membranes pink and moist. Airway patent. NECK: Trachea midline. CARDIOVASCULAR: Regular rate and rhythm. RESPIRATORY: No accessory muscle use. Clear to auscultation. Breath sounds equal bilaterally. GASTROINTESTINAL: Abdomen soft, non-tender, nondistended. MUSCULOSKELETAL: Extremities without clubbing, cyanosis, or edema. No obvious deformities. Positive for tenderness elicited with internal and external rotation the left hip. Motor sensory function intact in the left lower extremity. NEUROLOGICAL: Awake and alert. No obvious cranial nerve deficits. Motor grossly within normal limits. Able to move all extremities spontaneously. Normal speech. PSYCHIATRIC: Depressed mood, tearful. Results - Labs CBC & Chem 7: 03/21/18 10:26 Laboratory Results - last 24 hr 03/21/18 10:26 Hemoglobin A1c 5.3 Assessment and Plan - Assessment (1) Gait instability Code(s): R26.81 - Unsteadiness on feet Status: Acute (2) Balance problem Code(s): R26.89 - Other abnormalities of gait and mobility Status: Acute - Plan 52-year-old -[place] female with past medical history significant for glaucoma, chronic back pain, hypertension, hyperlipidemia, GERD and fibromyalgia who presented to the emergency department on 03/15 due to altered mental status and generalized weakness. She was admitted to observation unit and subsequently discharged on to inpatient psychiatry. [facility] has been consulted to restart patient's medications. Acute psychosis, improved -Management per psychiatry -HIV negative, RPR pending Acute encephalopathy secondary to polypharmacy, resolved Head CT negative for acute intracranial process -Continue close monitoring of patient's medications she is on multiple sedating meds, avoid if possible. -Patient appears improved with reduction in dose of Lyrica and holding baclofen and hydroxyzine. Plan continue on current dose of Lyrica. Chronic pain Left hip pain -Continue Lyrica dose decreased to 100 mg twice daily, Mobic 7.5 mg daily, discontinue baclofen secondary to oversedation -Avoid narcotics if at all possible secondary to recent episode of encephalopathy -Patient scheduled to follow-up as outpatient with Dr. Ludwig as previously scheduled for MRI of the left hip and spine. -Continue participation with PT, patient ambulated 100 feet independently. Discussed with patient PT today Yonathan Carlos, patient performed all activities independently, no PT needs identified following discharge Hypertension Hyperlipidemia -Continue Norvasc 5 mg daily, lisinopril 40 mg daily, Clonidine 0.2mg HS, Toprol XL dose to 25 mg daily -Continue monitoring vital signs and adjusting medications according Hypokalemia K 3.2 Mag level 2.0 -P.o. repletion ordered yesterday, 6 AM labs ordered for this morning still not done -Continue to monitor potassium level as indicated KHUSHI, mild -Avoid nephrotoxic agent -Encourage oral fluid intake -Monitor kidney function as indicated - BMP ordered 6 AM this morning not done Transaminitis LFTs trending down -Avoid hepatotoxic agent -Continue to monitor LFTs, trending down, near normal. Diarrhea, resolved -Most likely secondary to stool softeners, hold stool softeners and monitor. GERD-Continue home Protonix DVT prophylaxis-ambulation Patient appears stable from hospitalist standpoint. [facility] will sign off. Please reconsult if needed. Discussed Condition With: patient, nursing staff
--- NOTE | 2018-03-22 14:23 | P.DS ---
Date of admission: 03/18/18 13:50 Primary care physician: UNKNOWN DS: Diagnosis - Discharge Diagnosis (1) Unspecified psychosis Status: Acute DS: Medications - Discharge Medications Prescriptions: metoprolol succinate 25 mg PO DAILY #30 tab pregabalin [Lyrica] 100 mg PO BID #60 cap DS: Summary - Time Spent with Patient Total time spent providing and/or coordinating discharge services: Exam Vital signs: Vital Signs 03/21/18 18:39 03/22/18 06:00 Temperature 98 F 97.5 F L Pulse Rate 69 70 Respiratory Rate 17 17 Blood Pressure 120/81 134/58 L Pulse Oximetry 99 Intake & Output 03/21/18 03/22/18 03/22/18 18:59 06:59 18:59 Intake Total 1560 / 1560 580 / 580 720 / 720 Output Total 2 / 2 Balance 1560 / 1560 578 / 578 720 / 720 Intake: Oral 1560 / 1560 480 / 480 720 / 720 Oral Supplement 100 / 100 Output: Urine 2 / 2 Results Labs on day of discharge: Labs from last 24 hours 03/21/18 10:26 Hemoglobin A1c 5.3 Discharge Plan - Physicians Team Primary Care Provider: UNKNOWN, Attending Provider: Rex Sadler Other Providers: Andres Gagnon DO - Rxs /Orders / Referrals /Forms Prescriptions: New metoprolol succinate 50 mg Tablet Extended Release 24 Hr 25 mg PO DAILY Qty: 30 RF: 0 pregabalin [Lyrica] 100 mg Capsule 100 mg PO BID Qty: 60 RF: 0 Continue albuterol sulfate 90 mcg/actuation Hfa Aerosol Inhaler 2 puff INHALATION Q4-6H PRN (Reason: Shortness Of Breath) alendronate 70 mg Tablet 70 mg PO QWEEK amlodipine 5 mg Tablet 5 mg PO DAILY clonidine HCl 0.2 mg Tablet 0.2 mg PO HS diclofenac sodium 1 % Gel 1 applicatio TOPICAL QID lisinopril 40 mg Tablet 40 mg PO DAILY meloxicam 7.5 mg Tablet 7.5 mg PO DAILY naloxegol 25 mg Tablet 25 mg PO QAM pantoprazole 40 mg Tablet,Delayed Release (Dr/Ec) 40 mg PO DAILY rosuvastatin 20 mg Tablet 20 mg PO DAILY topiramate 200 mg Capsule,Extended Release 24hr 200 mg PO DAILY umeclidinium 62.5 mcg/actuation Blister With Device 1 inh INHALATION DAILY Discontinued baclofen 10 mg Tablet 10 mg PO TID hydroxyzine HCl 25 mg Tablet 25 mg PO TID metoprolol succinate 50 mg Tablet Extended Release 24 Hr 50 mg PO DAILY pregabalin 200 mg Capsule 200 mg PO BID No Action paroxetine HCl 20 mg Tablet 20 mg PO DAILY sertraline 50 mg Tablet 50 mg PO DAILY Referrals: Surendra Ludwig MD [Physician] - See Instructions ( Please call the physician's office to book the appointment to be seen within [one week].) UNKNOWN, [Primary Care Provider] - See Instructions [Non-Staff] - See Instructions ( Please call the physician's office to book the appointment to be seen within [one week].)
--- NOTE | 2018-03-22 14:26 | P.DCO ---
- Home Health Nursing Order: Signs/symptoms of disease process, Nursing assessment with vital signs - Help Aid Order: To evaluate: Living conditions/environment, Support services Order: To provide: Long range planning, Community services - Certification I have seen patient Echo Baez on 03/22/18. My clinical findings support the need for the requested home health care services because: Need for psychosocial assistance I certify that my clinical findings support that this patient is homebound because: Need for psychosocial assistance
--- NOTE | 2018-03-22 14:40 | P.DSPSY ---
Psychiatry Discharge Summary Inpatient Psychiatric care?: Yes Advance Directives: No Mental Health Advance Directive: No Health Care Proxy: No - Admission Admission Date: March 18, 2018 13:50 - Admission Diagnosis (1) Unspecified psychosis Code(s): F29 - Unspecified psychosis not due to a substance or known physiological condition Brief History: Patient is a 52-year-old -[place] female initially comes to the hospital about 03/15/2018 of the Bentley act recurrent on 03/16/2018 signed by Jitendra Paniagua dated 02/2918 stating unspecified psychosis patient acutely psychotic paranoid bizarre and presenting delusions patient was admitted to the medical side for further assessment urine toxicology positive for benzodiazepines. The impression was that patient had of medication-induced altered mental status she is unwilling veritable cortical eleni of medications recently done here from [place] she does have a son who lives locally. It appears patient was medically cleared and then transferred to the 2700 unit. Patient sitting quietly in her chair in the dayroom. Patient seen with nurse Maria De Jesus. Patient is grossly oriented to [place] 2017 and February, she is confused as to place and situation. We are not certain as to the reasons for her moving here from [place]. We are uncertain as to any past psychiatric history. Patient is unable to give us that information. In any event at the present time patient does meet criteria for further inpatient psychiatric hospitalization of the Bentley act I will do first opinion request second opinion. Though I do feel she may have capacity to sign for medication. She has been no behavior problem. We will have the hospitalist continue their consultation she is on as mentioned above multiple medication. We will attempt to reach patient's family locally to get further information about this lady Tobacco Use In Past 30 Days: No How Often Do You Have a Drink Containing Alcohol: Monthly or less Hospital Course: Patient was admitted to a locked, inpatient psychiatric unit. A general medical consultation was obtained. Appropriate precautions were in place throughout patient's hospital stay. Patient was seen and examined on the unit by psychiatry and also visited by counselor. Patient's mental status improved with adjustment in dose of patient's general medical medications, and no psychotropic medications were required. There was no evidence of any suicidality or homicidality on the inpatient unit. The patient's behavior, although never terribly disturbed, improved with improvement in her mental status. Collateral information was obtained from the patient's family by the counselor. On the day of discharge: Patient seen and examined with nurse. Chart reviewed. Case discussed with nursing staff. No reported behavioral issues noted overnight. Case discussed with counselor. Counselor has reached out to patient's adult son today, and he is reportedly comfortable with the patient being discharged home today. Counselor relates that patient's son will be staying with the patient to monitor her after return to the home and another family member will relieve him in this duty later in the week. On my examination today, the patient appears clear thinking. She is oriented 4. She is requesting discharge from the inpatient psychiatric unit today. She denies any suicidal or homicidal ideation, intent or plan. I can elicit no depressive or hypomanic/manic symptoms. She denies any audiovisual hallucinations. I can elicit no delusional material. No medication side effects. No acute physical complaints. Weighing the relevant factors and based on the available evidence, I asphalt smoother that the patient no longer meets criteria for involuntary psychiatric hospitalization. There is no evidence of imminent risk of harm to self or others, nor is there evidence of self-care deficit to substantiate involuntary psychiatric hospitalization. The patient is requesting discharge home today, and I have no basis to retain her over her objection. She is agreeable to resuming home health care on discharge, and I have initiated this referral and discussed the matter with counselor. The patient will be discharged home today with home health care with psychiatric follow-up as arranged by counselor. Patient is also to follow up with primary care and specialist physicians. I did discuss the case with the mid-level provider from the hospitalist service on day of discharge, and she notes that the patient is medically cleared for discharge today. I have counseled the patient to abstain from substances of abuse. I have counseled the patient regarding warning signs for need to return to the psychiatric emergency room as part of a general safety plan. - Discharge Discharge Date: 03/22/18 - Discharge Diagnosis (1) Unspecified psychosis Diagnosis: Principal (Suspect delirium, now resolved) Code(s): F29 - Unspecified psychosis not due to a substance or known physiological condition Status: Acute Discharge Disposition: Home with home health care - Discharge Instructions Discharge Diet: Regular Diet Activities You Can Perform: Weight Bearing As Tolerat - Discharge Time > 30 minutes Mental Status Examination Appearance: Appropriate Consciousness: Alert Orientation: x4 Motor Activity: Other (No motor abnormalities noted) Speech: Unremarkable Language: Adequate Fund of Knowledge: Adequate Attention and Concentration: Adequate Memory: Unremarkable (Grossly intact on clinical exam) Mood: Appropriate Affect: Appropriate Thought Process & Associations: Intact, Logical, Linear Thought Content: Appropriate Hallucination Type: None Delusion Type: None Suicidal Ideation: No Suicidal Plan: No Suicidal Intention: No Homicidal Ideation: No Homicidal Plan: No Homicidal Intention: No Mental Status Exam Remarks: Insight and judgment seem fair. Discharge/Advance Care Plan - Results Vital Signs: Last Vital Signs Temp 97.5 F L 03/22/18 06:00 Pulse 70 03/22/18 06:00 Resp 17 03/22/18 06:00 BP 134/58 L 03/22/18 06:00 Pulse Ox 99 03/21/18 18:39 Lab Results: Abnormal Lab Results 03/21/18 10:26 Hemoglobin A1c 5.3 Laboratory Results Hemoglobin A1c 5.3 % (4.3-6.0) 03/21/18 10:26 Triglycerides 65 mg/dL (42-150) 03/21/18 10:26 Cholesterol 97 mg/dL (120-200) L 03/21/18 10:26 LDL Cholesterol, Calc 27 mg/dL (0-99) 03/21/18 10:26 HDL Cholesterol 57.1 mg/dL (40.0-60.0) 03/21/18 10:26 Free T4 1.32 ng/dL (0.76-1.46) 03/21/18 10:26 Summary of Procedures: None done Pending Results: Lab Results - Medications Number of antipsychotic medications at discharge: 0 - Discharge Care Plan Goals to Promote Your Health: * To prevent worsening of your condition and complications * To maintain your health at the optimal level Directions to Meet Your Goals: Take your medications as prescribed Follow your dietary instruction Follow activity as directed Keep your appointments as scheduled Take your immunizations and boosters as scheduled If your symptoms worsen call your PCP, if no PCP go to Urgent Care Center or Emergency Room For 11/04 questions related to your inpatient stay or results of tests pending at discharge, please contact Dr. Rex Sadler MD at [phone] Smoking is Dangerous to Your Health. Avoid second hand smoking
== END 2018-03-22 16:20 | disposition home health service (06) ==
LOC: H260 13:50 → H270 22:55 → H4EA 03-20 12:19
PROVIDERS: ADMIT Psychiatry & Neurology Psychiatry; ATTEND Psychiatry & Neurology Psychiatry